=== PATIENT | female | born 1960 | race Caucasian/White ===

== ENCOUNTER 2021-07-08 16:54 | Emergency (ER) | payer OTHER ==
[~2021-07-08] VITALS: Ht 167.6 cm; Wt 70.4 kg
[2021-07-08 17:06] VITALS: BP 136/86
--- NOTE | 2021-07-08 17:07 | ED.ADGEN ---
General Adult EDM: Chief Complaint: ANKLE PROBLEM HPI: HPI: Patient is a 60-year-old female who arrives ambulatory to the emergency department after falling 2 hours prior to arrival. Patient reportedly twisted her ankle in the process and now has swelling and pain laterally. Patient also sustained minor abrasions to her face however she did not lose consciousness and denies pain. Patient has noted swelling with bruising consistent with a recent fall to her ankle. She denies any pain to her foot. She further denies any pain to her lower leg. She is awake, alert and nontoxic-appearing Review of Systems: Review of Systems: Constitutional: Denies fever or chills. [] Eyes: Denies change in visual acuity. [] HENT: Denies nasal congestion or sore throat. [] Respiratory: Denies cough or shortness of breath. [] Cardiovascular: Denies chest pain or edema. [] GI: Denies abdominal pain, nausea, vomiting, bloody stools or diarrhea. [] : Denies dysuria. [] Musculoskeletal: Reports extremity pain with swelling of the right ankle. Denies back pain. [] Integument: Denies rash. [] Neurologic: Denies headache, focal weakness or sensory changes. [] Endocrine: Denies polyuria or polydipsia. [] Lymphatic: Denies swollen glands. [] Psychiatric: Denies depression or anxiety. [] Allergies: Allergies: Allergies Coded Allergies Type Severity Reaction Last Updated Verified No Known Drug Allergies 07/08/21 No Physical Exam: PE: Constitutional: Well developed, well nourished, no acute distress, non-toxic appearance. [] HENT: Normocephalic, atraumatic, bilateral external ears normal, oropharynx moist, no oral exudates, nose normal. [] Eyes: PERRLA, EOMI, conjunctiva normal, no discharge. [] Neck: Normal range of motion, no tenderness, supple, no stridor. [] Cardiovascular:Heart rate regular rhythm, no murmur [] Lungs & Thorax: Bilateral breath sounds clear to auscultation [] Abdomen: Bowel sounds normal, soft, no tenderness, no masses, no pulsatile masses. [] Skin: Warm, dry, no erythema, no rash. [] Back: No tenderness, no CVA tenderness. [] Extremities: Patient has swelling of the right ankle at the lateral malleolus with ecchymosis. There is minimal tenderness present at this site. No cyanosis, no clubbing, ROM intact, no edema. [] Neurologic: Alert and oriented X 3, normal motor function, normal sensory function, no focal deficits noted. [] Psychologic: Affect normal, judgement normal, mood normal. [] Current Patient Data: Vital Signs: Vital Signs Date Time Temp Pulse Resp B/P (MAP) Pulse Ox O2 Delivery O2 Flow Rate FiO2 07/08/21 17:06 98.2 78 20 136/86 (103) 99 Room Air 98.2 EKG: EKG: [] Heart Score: C/O Chest Pain: No Risk Factors: Risk Factors: DM, Current or recent (<one month) smoker, HTN, HLP, family history of CAD, obesity. Risk Scores: Score 0 - 3: 2.5% MACE over next 6 weeks - Discharge Home Score 4 - 6: 20.3% MACE over next 6 weeks - Admit for Clinical Observation Score 7 - 10: 72.7% MACE over next 6 weeks - Early Invasive Strategies Radiology/Procedures: Radiology/Procedures: [] Impression: [facility] [address] [place] [address] IMAGING REPORT Signed PATIENT: YOBANI HARLEY ACCOUNT: [id number] : 1960 LOCATION: ER AGE: 60 SEX: F EXAM STATUS: PRE ER ORD. PHYSICIAN: AMARILYS LOZA DO REASON: pain/injury PROCEDURE: ANKLE RIGHT 3V Site ID: [id number] EXAMINATION: XR EXAM OF ANKLE_RIGHT 3VIEWS. HISTORY: 60 years Female Reason: pain/injury / Spl. Instructions: / History: . COMPARISON: None. FINDINGS: There is a lateral soft tissue swelling seen. The corticated the bone fragments and there the lateral malleolus could relate to ligamentous avulsion injury. No acute fractures seen otherwise. The ankle mortise is a normal in configuration. No degenerative changes. IMPRESSION: Prominent lateral soft tissue swelling with tiny bone fragments under the lateral malleolus could relate to ligamentous avulsion injury. Electronically signed by: Graham Carmona MD (07/08/2021 5:34 PM) [id number] DICTATED and SIGNED BY: GRAHAM CARMONA MD DATE: 07/08/21 [id number] 0 Course & Med Decision Making: Course & Med Decision Making Pertinent Labs and Imaging studies reviewed. (See chart for details) Patient is awake, alert and in no acute distress. Patient may have suffered a small avulsion injury to her right ankle. I have advised that she obtain repeat imaging in 1 week to better assess this. She is otherwise been instructed to remain in an Aircast whenever she ambulates. Should she have any worsening pain or new injury I advised that she return. She understands and has agreed to do so. She is nontoxic-appearing and stable for discharge peer [] Jennifer Disclaimer: Jennifer Disclaimer: This electronic medical record was generated, in whole or in part, using a voice recognition dictation system. Departure Departure Impression: Primary Impression: Right ankle sprain Additional Impressions: Accidental fall Facial abrasion Disposition: 01 HOME / SELF CARE / HOMELESS Condition: STABLE Patient Instructions: Abrasions, Ankle Sprain Problem Qualifiers AMARILYS LOZA DO Jul 08, 2021 17:07
--- NOTE | 2021-07-08 17:37 | RAD ---
Site ID: [id number] EXAMINATION: XR EXAM OF ANKLE_RIGHT 3VIEWS. HISTORY: 60 years Female Reason: pain/injury / Spl. Instructions: / History: . COMPARISON: None. FINDINGS: There is a lateral soft tissue swelling seen. The corticated the bone fragments and there the lateral malleolus could relate to ligamentous avulsion injury. No acute fractures seen otherwise. The ankle mortise is a normal in configuration. No degenerative changes. IMPRESSION: Prominent lateral soft tissue swelling with tiny bone fragments under the lateral malleolus could rel ate to ligamentous avulsion injury. Electronically signed by: Sergio Carmona MD (07/08/2021 5:34 PM) [id number]
== END 2021-07-08 17:49 | disposition home or self-care (01) ==
LOC: ER 16:54
DX: S93.401A Sprain of unspecified ligament of right ankle, initial encounter (principal); S00.81XA Abrasion of other part of head, initial encounter; W01.0XXA Fall on same level from slipping, tripping and stumbling without subsequent striking against object, initial encounter; Y93.89 Activity, other specified; Y92.89 Other specified places as the place of occurrence of the external cause; Y99.8 Other external cause status
CPT/HCPCS: 73610; 99283; L4350